=== PATIENT | female | born 1985 | race Caucasian/White ===

== ENCOUNTER 2017-08-21 17:21 | Emergency (ER) | payer MEDICAID, OTHER ==
--- NOTE | 2017-08-21 17:36 | CPEKG ---
Heart Rate: 73 RR Interval: 822 P-R Interval: 136 QRSD Interval: 96 QT Interval: 400 QTC Interval: 441 P [place]: 56 QRS [place]: 79 T Wave [place]: 40 EKG Severity - NORMAL ECG - EKG Impression: SINUS RHYTHM Electronically Signed By: Stephania Huggins 22-Aug-2017 00:53:47
[2017-08-21 17:53] LABS: PLATELET COUNT 233 10^3/uL (150-400)
--- NOTE | 2017-08-21 18:08 | EDPHY ---
HPI/HX/ROS/PE/MDM Narrative: CHIEF COMPLAINT: Chest pain, left arm HISTORY OF PRESENT ILLNESS: The patient is a 31 y/o female with a history of Bkrwu-Waqvpiwyl-Bnquh syndrome complaining of chest pain, back pain, and pain and numbness of the left arm, onset last night. She had palpitations before an ablation in 2006. Three years later she had one episode of tachycardia but has not had any incidents or symptoms since. Last night, she developed a tight squeezing pain in her chest accompanied by diaphoresis. This morning, the pain was still present and dull at a 2 to 3 and rising to a sharp pain at 6 to 7 before subsiding back to a dull pain. The worsening of pain is not associated with exertion or factors. This afternoon the pain spread into her left arm and became a burning sensation in her upper back. Her left arm is now numb and tingling. She has associated lightheadedness and dizziness. She denies syncope, nausea, vomiting, headache, palpitations, neck pain, or any other associated symptoms. She is a smoker. She does not take control pills. She denies history of blood clots, diabetes, hypertension, family history, or any other risk factors. No fever, chills, palpitations, vomiting, diarrhea, urinary complaints, headache, lightheadedness. REVIEW OF SYSTEMS: Aside from elements discussed in the HPI, a comprehensive 10-point review of systems was reviewed and is negative. 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 No diaphoresis. HEENT: Atraumatic. Eyes: No icterus, no injection. Mouth: moist mucous membranes. No erythema or lesions. Neck: supple with no adenopathy. Normal carotid pulses. No bruits. LUNGS: Clear to auscultation bilaterally, no wheezes, rhonchi or rales. No tenderness on the chest wall. CARDIAC: Regular rate and rhythm, no rubs, murmurs or gallops. ABDOMEN: Soft, nontender, nondistended, bowel sounds normal. BACK: No CVA tenderness. EXTREMITIES: No trauma. No edema. No swelling of the left upper extremity, normal peripheral pulses. Radial pulses 2+ and equal bilaterally. Range of motion is normal throughout. NEURO: Alert and oriented, sensation intact throughout to light touch. Normal motor strength. SKIN: Warm and dry, no rash. PSYCHIATRIC: Normal mentation, no agitation. ED Course: 12-LEAD EKG: Please see the full report in [facility]. My interpretation: Normal sinus rhythm The patient has a history of Wezsv-Omnzjyepk-Dgsiu Syndrome with an ablation in 2006 presenting with chest pain since last night. The pain spread and became a burning pain in her back and a numb and tingling sensation in her left arm. She denies other symptoms. She is a smoker but otherwise negative for risk factors. Plan for EKG, chest X-ray, CBC, comprehensive metabolic panel, troponin, d- dimer. The patient's EKG is normal. Chest X-ray indicates airway disease. Her labs are unremarkable, including troponin in the setting of many hours of pain and a D- dimer. The patient is a smoker but does not take control pills. Plan for DuoNeb and reevaluation. She feels she may have a UTI in addition so a urinalysis will be performed. I reevaluated the patient after her DuoNeb and hydrocodone. Her pain has improved and her arm is no longer numb and tingling. Aeration has improved. I discussed with the patient the evaluation for coronary artery disease. Patient's heart score is 2. She feels comfortable following up with her primary care physician for further risk stratification as needed. Her D-dimer is negative. Chest x-ray does not show widened mediastinum or cardiomegaly. HEART SCORE: History: 1 EK Age: 1 Risk Factors: 1 Troponin: 0 Total: 2 She is a smoker and her symptoms have improved with bronchodilators. MDM: HEART SCORE: History: 1 EK Age: 1 Risk Factors: 1 Troponin: 0 Total: 2 - Data Points Imaging Results: CXR: Impression: Suspect airways disease. Is there any wheezing? Dictated By: Kostas Crocker MD Laboratory Results: Laboratory Results 08/21/17 17:37 08/21/17 17:37 Medications Given: Discontinued Medications Albuterol (Proventil Neb) 3 ml IH EDNOW ONE Stop: 08/21/17 18:59 Last Admin: 08/21/17 19:11 Dose: 3 ml Albuterol (Proventil Neb) 3 ml IH EDNOW ONE Stop: 08/21/17 21:05 Last Admin: 08/21/17 21:37 Dose: 3 ml Albuterol Sulfate (Proventil Inh Prepack) 1 mdi TAKEHOME EDNOW ONE Stop: 08/21/17 21:06 Last Admin: 08/21/17 21:37 Dose: 1 mdi Albuterol/Ipratropium (Duoneb) 3 ml IH EDNOW ONE Stop: 08/21/17 18:59 Last Admin: 08/21/17 19:11 Dose: 3 ml Hydromorphone HCl (Dilaudid) 0.5 mg IVP EDNOW ONE Stop: 08/21/17 18:36 Last Admin: 08/21/17 19:09 Dose: 0.5 mg Ketorolac Tromethamine (Toradol) 15 mg IVP EDNOW ONE Stop: 08/21/17 21:05 Last Admin: 08/21/17 21:35 Dose: 15 mg Prednisone (Prednisone) 60 mg PO EDNOW ONE Stop: 08/21/17 21:06 Last Admin: 08/21/17 21:37 Dose: 60 mg General Time Seen by Provider: 08/21/17 17:46 Initial Vital Signs: Initial Vital Signs Temperature (C) 36.7 C 08/21/17 17:24 Heart Rate 88 08/21/17 17:24 Respiratory Rate 16 08/21/17 17:24 Blood Pressure 154/93 H 08/21/17 17:24 O2 Sat (%) 99 08/21/17 17:24 O2 Delivery Mode Room Air Allergies/Adverse Reactions: No Known Allergies Allergy (Unverified 08/21/17 17:24) Home Medications: Medication Instructions Recorded Albuterol Hfa Anes Only [Proair 2 puffs IH QID #1 mdi 08/21/17 Hfa Icu (*)] Ibuprofen 08/21/17 Departure - Departure Disposition: Home, Routine, Self-Care Clinical Impression: Reactive airway disease, Chest pain Condition: Good Instructions: Chest Pain (ED), Reactive Airways Disease (ED) Additional Instructions: 1. Use inhaler 4 times a day as directed. 2. Be sure to follow up with your primary care provider in 2 to 3 days. 3. Return to the emergency department for any worsening of condition. Referrals: Wild Fernandez MD [Medical Doctor] - As per Instructions Prescriptions: Albuterol Hfa Anes Only [Proair Hfa Icu (*)] 2 puffs IH QID #1 mdi Report Scribed for: Stephania Huggins Report Scribed by: Doretha Vidal Date of Report: 08/21/17 Time of Report: 19:49 Physician Review and Approval Statement: Portions of this note were transcribed by a medical technician. I personally performed a history, physical exam, medical decision making, and confirmed accuracy of information the transcribed note.
[2017-08-21] MEDS ORDERED: HYDROmorphONE/DILAUDID 2 MG/ML INJ IVP ONE (18:35)
[2017-08-21] MEDS ORDERED: IPRATROPIUM/ALBUTEROL 3 ML DEYVIAL IH ONE (18:58)
[2017-08-21] MEDS: ALBUTEROL 3 ML DEYVIAL IH ONE ×2 (19:10→19:11)
[2017-08-21] MEDS ORDERED: ALBUTEROL 3 ML DEYVIAL IH ONE (21:04)
[2017-08-21] MEDS ORDERED: KETOROLAC 15 MG/1 ML SDV IVP ONE (21:04)
[2017-08-21] MEDS ORDERED: ALBUTEROL INH PREPACK MDI TAKEHOME ONE (21:05)
[2017-08-21] MEDS ORDERED: predniSONE 20 MG TAB PO ONE (21:05)
[2017-08-21 21:47] VITALS: BP 144/81
== END 2017-08-21 21:54 | disposition home or self-care (01) ==
DX: R07.9 Chest pain, unspecified (principal); J45.909 Unspecified asthma, uncomplicated; F17.200 Nicotine dependence, unspecified, uncomplicated
CPT/HCPCS: 96374; J1170; J1885; J7512; J7613